=== PATIENT | male | born 1990 | race Caucasian/White ===

== ENCOUNTER 2020-05-02 22:26 | Emergency (ER) | payer OTHER, SELFPAY ==
[2020-05-02 22:27] VITALS: BP 171/107; PULSE 97; RESP 18; TEMP 36.4; O2SAT 96; BMI 30.9
--- NOTE | 2020-05-02 23:08 | CT_ITS ---
STUDY: CT BRAIN WITHOUT CONTRAST REASON FOR EXAM: Male, 29 years old. SYNCOPE, FALL RADIATION DOSAGE (If Supplied By Facility): CTDIvol = ( 44.99 ) mGy, DLP = ( 796.11 ) mGycm TECHNIQUE: Transaxial CT imaging of the brain was performed without administration of intravenous contrast material. Individualized dose optimization techniques were used for this CT. COMPARISON: No relevant priors. FINDINGS: Normal soft tissue structures. Normal calvarium. Normal size ventricles and extra-axial spaces for the patient''s age. Normal white matter tracts of the cerebral hemispheres. Normal basal ganglia and thalami. Normal brainstem. Normal cerebellum. There is no intracranial hemorrhage. There are no findings of an acute ischemic infarction. Normal visualized paranasal sinuses. CT/Brain/Head without Contrast IMPRESSION: Normal unenhanced CT scan of the brain. Electronically Signed: Thien Willis MD at 23:43 EDT , Service support ,
--- NOTE | 2020-05-02 23:08 | EKG12_ITS ---
Test Reason : SYNCOPE Blood Pressure : / mmHG Vent. Rate : 085 BPM Atrial Rate : 085 BPM P-R Int : 156 ms QRS Dur : 086 ms QT Int : 402 ms P-R-T Axes : 067 019 025 degrees QTc Int : 478 ms Normal sinus rhythm Normal ECG Confirmed by ALISON PLASCENCIA, JEET [id number]), editor magazine MARIAH FRANCIS ([id number] on 05/04/2020 11:15:10 AM Referred By: Confirmed By:JEET ROSAS MD
--- NOTE | 2020-05-02 23:21 | ED.DCSUM_ITS ---
- ER Visit Summary Date of Service: 05/02/20 Chief Complaint: Syncope History of Present Illness: The patient is a 29 M presenting after syncopal episode. Patient states that he drank 2 glasses of wine this evening. He stood up quickly and started to walk. He felt dizzy and then passed out. He hit his chin on the floor and a cat toy. He has a laceration to his chin. His tetanus is up-to-date. He denies chest pain or shortness of breath. Denies fever or cough. Denies other complaints. He feels back to baseline. Physical Examination: Vitals are stable. Patient is afebrile. Alert no acute distress. HEENT exam 2 cm laceration chin. Midface is stable. Neck is supple. Lungs are clear and equal bilaterally. Heart is regular rate and rhythm. Abdomen is soft nontender nondistended. Extremities are unremarkable. Skin is warm and dry. No focal neurologic deficit. Remainder of exam is unremarkable. Emergency Department Course and Treatment: EKG is sinus rhythm rate of 85 with no acute ischemic changes. Patient was given IV fluids. CT head normal unenhanced CT scan of the brain. CBC, chemistries unremarkable. Troponin is negative. D-dimer negative. Laceration was repaired. Irrigated with saline. Anesthetized with lidocaine. 3, 5-0 simple sutures were placed. Advised wound care instructions. Advised to follow-up with primary care physician. Advised return to ED for worsening complaints. Disposition: Discharge home Impression: Syncope, chin laceration, laceration repair This note was generated with [employer] dictation software. It may contain incorrect words, spelling, and punctuation that were not noted in review of the chart prior to signing ED Disposition - Plan for ED Patient: Instructions: ED Laceration All Closures, ED Fainting Uncertain Cause Referrals: NOT,DEFINED [NON-STAFF] -
[2020-05-02] MEDS: 0.9% Normal Saline 1,000 ML 1000 ML IV (23:22)
[2020-05-02 23:25] LABS: Absolute Lymphocyte Count 2.33 X10^3/uL (0.83-4.51); Basophil# 0.02 X10^3/uL; Basophil% 0.2 % (0-1); Eosinophil# 0.34 X10^3/uL; Eosinophils% 4.1 % (0-5); Hematocrit 46.1 % (40-54); Hemoglobin 16.1 g/dL (13.0-16.5); Lymphocyte # 2.33 X10^3/ul (4.0); Lymphocyte % 27.9 % (19-41); Mean Corp Hgb Conc 34.9 g/dL (32-36); Mean Corpuscular Hgb 32.8 pg (27.0-32.0); Mean Corpuscular Volume 93.9 fL (80-94); Mean Platelet Vol. 9.2 fl (6.2-12.0); Monocyte# 0.61 X10^3/uL; Monocyte% 7.3 % (0-10); NRBC Flagged by Analyzer 0 % (0-5); Neutrophil # 5.02 X10^3/uL (2.7-7.7); Neutrophil % 60.1 % (47-70); Platelet Count 275 K/mm3 (150-450); RBC Distribution Width CV 11.7 % (11.6-14.6); RBC Distribution Width SD 39.8 fl (35.1-43.9); Red Blood Count 4.91 M/mm3 (4.6-6.2); White Blood Count 8.4 K/mm3 (4.4-11.0)
[2020-05-02 23:39] LABS: D-Dimer Quantitative (DVT/PE) <= 0.27 FEU/ug/m (0.27-0.49)
[2020-05-02 23:43] LABS: Anion Gap 6 (5-15); BUN 19 mg/dL (7-18); BUN/Creat Ratio 17.8 RATIO (10-20); Calcium,Total 8.9 mg/dL (8.5-10.1); Chloride 102 mmol/L (98-107); Creatinine, Serum 1.07 mg/dL (0.70-1.30); EST Glomerular Filtration Rate 88 mL/min (>60); Est Glom Filt Rate - Afr Amer 106 mL/min (>60); Estimated Creatinine Clearance 100.33 ml/min; Glucose 114 mg/dL (74-106); Potassium 3.8 mmol/L (3.5-5.1); Sodium Level 138 mmol/L (136-145)
--- NOTE | 2020-05-03 00:34 | ED.DEP ---
ED Disposition - Plan for ED Patient: Instructions: ED Laceration All Closures, ED Fainting Uncertain Cause Referrals: NOT,DEFINED [NON-STAFF] -
[2020-05-03 00:48] VITALS: BP 154/91; PULSE 64; RESP 18; O2SAT 96
== END 2020-05-03 00:48 | disposition home or self-care (01) ==
PROVIDERS: Emergency Provider Emergency Medicine
DX: R55 Syncope and collapse (principal); S01.81XA Laceration without foreign body of other part of head, initial encounter; W19.XXXA Unspecified fall, initial encounter; Y93.01 Activity, walking, marching and hiking; Y92.9 Unspecified place or not applicable; Y99.9 Unspecified external cause status
CPT/HCPCS: 12011; 70450; 80048; 84484; 85025; 85379; 93005; 96360; 99284; J7030